=== PATIENT | female | born 1960 ===

== ENCOUNTER 2019-04-23 06:52 | Inpatient (IN) ==
--- NOTE | 2019-04-22 17:06 | Discharge Summary ---
Date of Encounter: 04/24/19 Time of Encounter: 08:45 - Discharge Diagnosis (1) Status post total replacement of left shoulder Priority: Primary Status: Acute (2) Rotator cuff tear arthropathy Priority: Primary Status: Chronic Qualifiers: Laterality: left Qualified Code(s): M75.102 - Unspecified rotator cuff tear or rupture of left shoulder, not specified as traumatic; M12.812 - Other specific arthropathies, not elsewhere classified, left shoulder (3) Arthritis of left shoulder region Priority: Primary Status: Chronic (4) History of pulmonary embolism Priority: Secondary Status: Chronic (5) USP current use of anticoagulant Priority: Secondary Status: Chronic (6) HTN (hypertension) Priority: Secondary Status: Chronic Qualifiers: Hypertension type: unspecified Qualified Code(s): I10 - Essential (primary) hypertension (7) HLD (hyperlipidemia) Priority: Secondary Status: Chronic Qualifiers: Hyperlipidemia type: unspecified Qualified Code(s): E78.5 - Hyperlipidemia, unspecified (8) COPD (chronic obstructive pulmonary disease) Priority: Secondary Status: Chronic Qualifiers: COPD type: unspecified COPD Qualified Code(s): J44.9 - Chronic obstructive pulmonary disease, unspecified (9) GERD (gastroesophageal reflux disease) Priority: Secondary Status: Chronic Qualifiers: Esophagitis presence: esophagitis presence not specified Qualified Code(s): K21.9 - Gastro-esophageal reflux disease without esophagitis (10) Tobacco dependence Priority: Secondary Status: Chronic - Hospital Course Hospital course: Ms. Paniagua is a 58 year old female POD#1 s/p Total Shoulder Replacement Reverse, left [Left shoulder cuff tear arthropathy] 04/23/19 Patient seen at bedside. Spouse at bedside. A&Ox3 Dressing and incision c/d/i No calf tenderness, erythema, or warmth. Neurovascularly intact b/l LE. Labwork, vitals, and medications reviewed. Pain control: Adequate Participating in therapy. All questions and concerns addressed. Educated on use of incentive spirometer, ambulation, and hydration. Patient educated on post-operative restrictions and care. Addressed: see above. Patient course and disposition discussed with Dr. Flores D/C plan: Home with Home health today. Outpatient follow up arranged - Time Spent with Patient Total time spent providing and/or coordinating discharge services: - Discharge Medications Prescriptions: New Docusate Sodium [Colace] 100 mg PO BID 5 Days #10 capsule OxyCODONE Immed Rel [Roxicodone 5 MG] 5 mg PO Q6HR PRN 5 Days #20 tablet PRN Reason: Severe Pain Continued Apixaban [Eliquis] 5 mg PO BID Atorvastatin Calcium [Lipitor] 20 mg PO HS Diltiazem CD (24hr) [Cardizem CD] 240 mg PO DAILY Ferrous Sulfate [Iron] 325 mg PO DAILY Gabapentin [Neurontin] 100 mg PO TID hydrOXYzine pamoate [HydrOXYzine Pamoate] 50 mg PO TID PRN PRN Reason: Anxiety Lisinopril [Zestril] 10 mg PO DAILY Omeprazole [PriLOSEC] 40 mg PO DAILY Quetiapine Fumarate [Seroquel] 50 mg PO BID risperiDONE [Risperidone] 1 mg PO HS Topiramate 50 mg PO DAILY Venlafaxine HCl [Venlafaxine HCl ER] 75 mg PO TID Home Medications: Docusate Sodium [Colace] 100 mg PO BID 5 Days #10 capsule 04/22/19 [Rx] OxyCODONE Immed Rel [Roxicodone 5 MG] 5 mg PO Q6HR PRN 5 Days #20 tablet 04/22/19 [Rx] Apixaban [Eliquis] 5 mg PO BID 04/23/19 [History] Atorvastatin Calcium [Lipitor] 20 mg PO HS 04/23/19 [History] Diltiazem CD (24hr) [Cardizem CD] 240 mg PO DAILY 04/23/19 [History] Ferrous Sulfate [Iron] 325 mg PO DAILY 04/23/19 [History] Gabapentin [Neurontin] 100 mg PO TID 04/23/19 [History] Lisinopril [Zestril] 10 mg PO DAILY 04/23/19 [History] Omeprazole [PriLOSEC] 40 mg PO DAILY 04/23/19 [History] Quetiapine Fumarate [Seroquel] 50 mg PO BID 04/23/19 [History] Topiramate 50 mg PO DAILY 04/23/19 [History] Venlafaxine HCl [Venlafaxine HCl ER] 75 mg PO TID 04/23/19 [History] hydrOXYzine pamoate [HydrOXYzine Pamoate] 50 mg PO TID PRN 04/23/19 [History] risperiDONE [Risperidone] 1 mg PO HS 04/23/19 [History] Allergies/Adverse Reactions: Allergy/AdvReac Type Severity Reaction Status Date / Time No Known Allergies Allergy Verified 05/17/16 22:39 Date of admission: 04/23/19 Primary care physician: Rony Gupta CNP Discharging clinician: Pramod Flores Anticipated date of discharge: 04/24/19 - VTE Documentation of Mechanical Device: Venous foot pump, device - Patient Status Disposition: Home Health Service Condition: Good Functional capacity at discharge: uses cane/walker Overall status at discharge: patient is progressing back to baseline - Discharge Instructions Follow Up With: Rony Gupta CNP [Primary Care Provider] - - Diet and Activity Activity: as per physical therapy Diet: advance to your usual diet
[2019-04-23] MEDS ORDERED: CeFAZolin Syr 2,000MG/20 ML 2,000 MG/20 ML SYRINGE IVPB ONE (07:39)
[2019-04-23] MEDS ORDERED: Albuterol 2.5 MG/3 ML NEBULIZER IH ONE (07:39)
[2019-04-23] MEDS ORDERED: Ringers Solution, Lactated 1,000 ML IVC SCH (07:45)
[2019-04-23] MEDS ORDERED: Albuterol 2.5 MG/3 ML NEBULIZER ONE (07:45)
--- NOTE | 2019-04-23 07:50 | History & Physical Report ---
Date of Encounter: 04/23/19 Time of Encounter: 07:49 24 Hour HP Update - Instructions Instructions: If the History and Physical is less than 30 days old and was completed prior to A.M. admission and or procedure and has NOT been updated on calendar day of procedure please complete this update prior to performing procedure. - Update Patient reports changes in Medical Condition: No Changes in examination, assessment, or condition: No Changes in Medication: No Preop tests/diagnostics Reviewed: Yes Surgery Remains Indicated: Yes Consent for Planned Operative Procedure(s) Verified: Yes - Pre-Operative Checklist Preoperative Checklist Indicated: No Prophylactic Antibiotic Ordered: Yes Is VTE Prophylaxis Indicated?: Yes
[2019-04-23] MEDS ORDERED: Lidocaine -MPF 4% 5 ML AMPUL ONE (07:54)
[2019-04-23] MEDS ORDERED: *HR* Succinylcholine 200 MG/10 ML VIAL IVP ONE (07:54)
[2019-04-23] MEDS ORDERED: Lidocaine -MPF 2% 2 ML VIAL ONE (07:54)
[2019-04-23] MEDS ORDERED: *HR* Propofol 200 MG/20 ML VIAL IVP ONE (07:54)
[2019-04-23] MEDS ORDERED: *HR* Midazolam HCl 2 MG/2 ML VIAL ONE (07:54)
[2019-04-23] MEDS ORDERED: *HR* FentaNYL (PF) 100 MCG/2 ML VIAL ONE ×2 (07:54→10:06)
--- NOTE | 2019-04-23 07:55 | Anesthesia Evaluation PreOp ---
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 Other Medical History: GERD Anesthesia History: No Prior Anesthetic Complications, Past Anesthesia Alcohol Use: none Drug use: none Medications and Allergies Ondansetron ODT [Zofran ODT] 4 mg PO Q6HR PRN #7 tab 05/18/16 [Rx] Docusate Sodium [Colace] 100 mg PO BID 5 Days #10 capsule 04/22/19 [Rx] OxyCODONE Immed Rel [Roxicodone 5 MG] 5 mg PO Q6HR PRN 5 Days #20 tablet 04/22 [Rx] Allergy/AdvReac Type Severity Reaction Status Date / Time No Known Allergies Allergy Verified 05/17/16 22:39 - Meds/Allergy Pre-op Review Medications Reviewed: Yes Allergies Reviewed: Yes Beta Blockers on Current Med List: No Anesthesia Results - Labs Laboratory Tests 04/16/19 04/16/19 04/16/19 15:05 15:05 15:05 WBC 5.8 Hgb 12.2 Hct 38.7 Plt Count 324 PT 13.0 H INR 1.1 APTT 39.9 H Sodium 137 Potassium 3.7 BUN 16 Creatinine 0.97 - Imaging EKG: report reviewed (04/16/2019 SINUS RHYTHM POSSIBLE LEFT ATRIAL ENLARGEMENT SEPTAL MYOCARDIAL INFARCTION, PROBABLY OLD) Anesthesia Exam O2 Sat Height 1.57 m Weight 78.925 kg O2 Sat by Pulse Oximetry 95 Vital Signs Temp Pulse Resp BP Pulse Ox 98.2 F 91 18 105/70 95 04/23/19 07:33 04/23/19 07:33 04/23/19 07:33 04/23/19 07:33 04/23/19 07:33 Height: 5'2'' Weight: 174 lbs NPO (# of Hours): 8 Pain Scale: 6 (left shoulder) Pain Scale Used: Numeric (1 - 10) - HEENT Pupil (Motor): EOMI Mallampati: II Teeth: Normal, Missing Denture Type: Upper: Complete Oral Opening: Greater than 3 - OIL WELL ENGINEER LOC: Oriented OIL WELL ENGINEER Motor: Normal RUE, Normal LUE, Normal RLE, Normal LLE, Normal Face OIL WELL ENGINEER Sensory: Normal: RUE, LUE, RLE, LLE, Face - Cardiac Rhythm: Regular Murmur: None - Pulmonary Breath Sounds: bilateral Clear (wheezes) Respiratory Effort: Symmetrical Anesthesia Assess/Plan ASA Score: 3 Level of consciousness: Cooperative, Oriented, Tranquil Anesthetic Plan: General, Regional Nerve Block Regional Nerve Block Plan: Supraclavicular Monitoring Plan: Standard Monitors Recovery Plan: PACU
[2019-04-23] MEDS ORDERED: Ondansetron 4 MG/2 ML VIAL IVP ONE (08:19)
[2019-04-23] MEDS ORDERED: *HR* Promethazine 25 MG/ML VIAL IVP PRN (08:19)
[2019-04-23] MEDS ORDERED: *HR* HYDROmorphone (PF) 1 MG/ML SYRINGE IVP PRN (08:19)
[2019-04-23] MEDS ORDERED: *HR* OxyCODONE Immed Rel 5 MG TABLET PO PRN ×2 (08:19→11:17)
[2019-04-23] MEDS ORDERED: Ethanol\\Acetic Acid\\Na Ace\\Ben 1,000 ML IRRIG.SOLN IR ONE (08:34)
[2019-04-23] MEDS ORDERED: Ropivacaine/PF 0.5% 30 ML VIAL ONE (08:35)
[2019-04-23] MEDS ORDERED: ROPIVACAINE/PF/NS 0.25% 1 EACH SYRINGE INTRAART ONE (08:35)
--- NOTE | 2019-04-23 08:51 | Anesthesia Procedures ---
Date of Encounter: 04/23/19 Time of Encounter: 08:41 Procedures: Anesthesia - Nerve Block Procedure Date: 04/23/19 Time: 08:41 Allergies/Adv Reactions: NKDA Surgical Procedure: L Total Shoulder Arthroplasty, Reverse Checklist: Correct Patient Identifier, Correct procedure, History checked Correct side: Left Blood Thinner: No Monitor Applied: EKG, BP, Pulse Oximetry Supplemental Oxygen via Nasal Cannula (L/min): 2 Sedation: Versed (mg): 2 Sedation: Fentanyl (mcg): 100 Indication: Post Op Analgesia Pre-op Neuro Deficits: No Block Type: Supraclavicular, Other (Intercostobracheal, Superficial Cervical) Catheter placed: No Sterile Technique: Yes Ultrasound used: Yes Anatomy identified: Yes Visual spread of Local: Yes Neuro Stimulation: No Blood on Needle Aspiration: No Smooth Injection of Local: Yes Pain with Injection of Local: No Prep: Chlorhexadine Needle: 22 x 50 mm Stimuplex Local: Ropivacaine (30mL 0.5% Ropivacaine with 8mg Decadron (Supraclavicular), 0.25% Ropivacaine (7mL Superficial Cervical), (13mL Intercostobracheal). ) Number of Attempts: 1 Complications: None/effective block Vitals: Vital Signs/O2 Sat/Glucose, Most Recent Temp Pulse Resp BP Pulse Ox 98.2 F 79 16 99/72 93 04/23/19 07:33 04/23/19 08:45 04/23/19 08:45 04/23/19 08:45 04/23/19 08:45
[2019-04-23] MEDS ORDERED: EPHEDrine 50 MG/ML VIAL ONE (09:22)
[2019-04-23] MEDS ORDERED: Ondansetron 4 MG/2 ML VIAL ONE (09:23)
[2019-04-23] MEDS ORDERED: Dexamethasone 4 MG/ML VIAL ONE (09:23)
--- NOTE | 2019-04-23 09:54 | Orthopedic Operative Note ---
Date of procedure: 04/23/19 Pre-op diagnosis: Left shoulder cuff tear arthropathy Post-op diagnosis: same Procedure: Procedure: Total Shoulder Replacment Reverse, left Estimated blood loss: 50 cc Hardware: Metal and polyethylene replacement: Arthrex 24, +2 , 25 mm screw glenoid baseplate, 4 locking 5.5 screw, 36+4 glenosphere, 7 [place] humeral stem, poly insert 3 Exam Under anesthesia: Full motion no instability Procedural Notes: Rotator cuff tear grade 4 arthritic changes humeral head and glenoid socket. Operative procedure: The patient was brought to the operating room and placed on the operating room table. After general anesthesia was administered the operative shoulder was examined. Findings were noted. The patient was placed in the modified beachchair position. All pressure points were padded appropriately. And the head was stabilized in the neutral position. The operative extremity was prepped and draped in the sterile surgical fashion. The patient received IV antibiotics prior to skin incision. A standard deltopectoral approach was made to the operative shoulder. Incision was made to the skin and subcutaneous tissue,hemo stasis was obtained with Bovie cautery. Using careful blunt dissection the cephalic vein was identified and mobilized medially. The deltopectoral interval was developed and the clavipectoral fascia was incised. The subscap was released off the lesser tuberosity and tagged with #2 FiberWire suture subscap was irreparable. The humerus was dislocated patient noted to have tear supraspinatus tendon, and the humeral cut was made along the anatomic neck. Patient noted to have grade 4 arthritic changes humeral head and glenoid socket. Anterior and posterior Bankart retractors were placed to expose the glenoid. The glenoid guide was seated and the centering hole was made. It was reamed with the appropriate jack vi. The 24, +2, 25 mm screw, baseplate was seated and secured with 4 locking 5.5 screw. The baseplate was irrigated and dried and the 36+4 Glenosphere was seated and secured with the Wilson taper. The Wilson taper was tested and found to be secure, glenosphere fixation was secondarily secured with the central screw. The humerus was redislocated and prepared with the diaphyseal reamers, followed by a broaching process up to the appropriate size 7 [place] in the patient's anatomic version. The metaphyseal reamer was then utilized. Trial reduction found the shoulder to be relocatable. Trial components were removed and 7 [place] stem was impacted in place in the patient's anatomic version. Trial reduction found the shoulder to be relocatable and stable with the appropriate 3 Trial component was removed and the real implant was seated and secured the shoulder was reduced. The shoulder had excellent motion and excellent stability and no evidence of dislocation. The deep tissue was irrigated with pulse irrigation. The PA close the shoulder. The deltopectoral interval was closed with a running #1 PDS suture, subcutaneous tissue was irrigated and closed with 0 PDS suture, the skin was closed with Dermabond. The patient was placed in a sterile dressing, abduction brace and extubated. The patient was then transferred to the recovery room in stable condition. Anesthesia: GETA Surgeon: Pramod Flores Was there an library serials assistant present: No Estimated blood loss (cc): 50 Condition: stable Disposition: PACU
[2019-04-23] MEDS ORDERED: hydrOXYzine pamoate 25 MG CAPSULE PO PRN (11:17)
[2019-04-23] MEDS ORDERED: Temazepam 15 MG CAPSULE PO PRN (11:17)
[2019-04-23] MEDS ORDERED: Ondansetron 4 MG/2 ML VIAL IVP PRN (11:17)
[2019-04-23] MEDS ORDERED: MOM Conc 10 ML UD.LIQ PO PRN (11:17)
[2019-04-23] MEDS ORDERED: traMADol 50 MG TABLET PO PRN (11:17)
[2019-04-23] MEDS ORDERED: Sennosides 8.6 MG TABLET PO PRN (11:17)
--- NOTE | 2019-04-23 11:21 | Anesthesia Evaluation Post Op ---
Date of Encounter: 04/23/19 Time of Encounter: 11:00 - Vital Signs Vital Signs: Selected Entries 04/23/19 10:41 Temperature 97.1 F L Pulse Rate 100 Respiratory Rate 20 Blood Pressure 135/81 O2 Sat by Pulse Oximetry 95 - Lungs Lungs: Wheezes (received breathing treatment in PACU. Patient feels she is at her baseline.) - Airway Airway: Non-obstructed - Cardiovascular Regular Rate - Mental Status Mental Status: Alert & Oriented, Answers Appropriately - Nausea Vomiting Nausea Vomiting: Not Present - Hydration Hydration: Tolerates oral liquids - Discharge PostOp Status: Transfer Patient to floor
--- NOTE | 2019-04-23 11:44 | Physician Discharge Referral ---
Home Health/Hosp Referral Info Transfer to: Home Health Attending Provider: Dr. 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 For more information, call the [place] Tobacco Quit Line at 1-022-BYVI-NOW. - Dressing/Wound Care Site: left shoulder Type of Dressing/Treatments w/Frequency: Opsite placed. Keep dressing intact until first follow up appointment. If greater than 50% saturated, notify office, remove dressing and place appropriate dressing back in place. Leave Zipline intact. Opsite dressing is water resistant, not water-proof. OK to shower, but do not get dressing wet. - Diet/Nutrition Diet/Nutrition Orders: Regular - Activity Activity Orders: Up ad juan, Ambulate, Chair Activity: List: PT/OT. NWB to affected upper extremity. Follow Shoulder Precautions x 6 weeks. Stay in brace during activity and at night. Remove brace during exercises. ICE and elevate extremity frequently throughout the day. - Services Needed Following services are medically necessary services: Nursing, Home Health Aide, Physical Therapy, Occupational Therapy, Med Social Work - Transfer Medications Prescriptions: Docusate Sodium [Colace] 100 mg PO BID 5 Days #10 capsule OxyCODONE Immed Rel [Roxicodone 5 MG] 5 mg PO Q6HR PRN 5 Days #20 tablet PRN Reason: Severe Pain Home Medications: Docusate Sodium [Colace] 100 mg PO BID 5 Days #10 capsule 04/22/19 [Rx] OxyCODONE Immed Rel [Roxicodone 5 MG] 5 mg PO Q6HR PRN 5 Days #20 tablet 04/22/19 [Rx] Apixaban [Eliquis] 5 mg PO BID 04/23/19 [History] Atorvastatin Calcium [Lipitor] 20 mg PO HS 04/23/19 [History] Diltiazem CD (24hr) [Cardizem CD] 240 mg PO DAILY 04/23/19 [History] Ferrous Sulfate [Iron] 325 mg PO DAILY 04/23/19 [History] Gabapentin [Neurontin] 100 mg PO TID 04/23/19 [History] Lisinopril [Zestril] 10 mg PO DAILY 04/23/19 [History] Omeprazole [PriLOSEC] 40 mg PO DAILY 04/23/19 [History] Quetiapine Fumarate [Seroquel] 50 mg PO BID 04/23/19 [History] Topiramate 50 mg PO DAILY 04/23/19 [History] Venlafaxine HCl [Venlafaxine HCl ER] 75 mg PO TID 04/23/19 [History] hydrOXYzine pamoate [HydrOXYzine Pamoate] 50 mg PO TID PRN 04/23/19 [History] risperiDONE [Risperidone] 1 mg PO HS 04/23/19 [History] Allergies/Adverse Reactions: Allergy/AdvReac Type Severity Reaction Status Date / Time No Known Allergies Allergy Verified 05/17/16 22:39 Certification: Further, I certify that my clinical findings support that this patient is homebound (i.e. absences from home require considerable and taxing effort and are for medical reasons or restoration services or infrequently or short duration when for other reasons) because: Homebound Reason: Post-surgery restriction and or conditions limit ability to leave home Attestation: My signature below is to certify that this patient is under my care and that I, or nurse practitioner, or a physician assistant softball coach working with me, has a [id number] encounter with this patient.
[2019-04-23] MEDS: Gabapentin 100 MG CAPSULE PO SCH ×2 (14:33→19:50)
[2019-04-23] MEDS: *HR* OxyCODONE/APAP 5/325 TABLET PO PRN (14:33)
[2019-04-23] MEDS: Ipratropium/Albuterol Neb 3 ML IH PRN (15:15)
[2019-04-23] MEDS ORDERED: *HR* Enoxaparin 30 MG/0.3 ML SYRINGE SQ ONE (15:30)
[2019-04-23] MEDS ORDERED: *HR* Enoxaparin 30 MG/0.3 ML SYRINGE SQ SCH ×2 (18:00)
[2019-04-23] MEDS: Ringers Solution, Lactated 1,000 ML IVC SCH (19:17)
[2019-04-23] MEDS: Apixaban 5 MG TABLET PO SCH (19:50)
[2019-04-23] MEDS: Venlafaxine XR (24 HR) 75 MG CAP.ER.24H PO SCH (19:51)
[2019-04-23] MEDS ORDERED: risperiDONE 1 MG TABLET PO SCH (21:00)
[2019-04-24] MEDS: *HR* OxyCODONE/APAP 5/325 TABLET PO PRN ×2 (01:46→08:17)
[2019-04-24] MEDS: Ringers Solution, Lactated 1,000 ML IVC SCH (01:49)
[2019-04-24] MEDS: Ipratropium/Albuterol Neb 3 ML IH PRN (02:20)
--- NOTE | 2019-04-24 06:23 | Orthopedics Progress Note ---
Date of Encounter: 04/24/19 Time of Encounter: 06:22 Subjective Interval history: Patient was seen this morning doing well without complaints. Afebrile vital signs stable. Operative extremity: Neurovascularly intact Dressing clean dry and intact Calves nontender Assessment and plan: Continue with postoperative care plan for discharge Objective Vital signs: Vital Signs Temp Pulse Resp BP Pulse Ox 04/24/19 04:11 97.9 F 100 20 118/74 94 04/24/19 02:20 22 93 04/23/19 23:44 98.1 F 107 16 115/87 94 04/23/19 19:57 93 04/23/19 19:15 97.9 F 108 17 140/84 93 04/23/19 15:15 18 94 04/23/19 13:50 108 16 122/83 90 04/23/19 12:50 100 18 121/84 92 04/23/19 12:20 96 18 118/83 91 04/23/19 11:50 92 18 122/82 93 04/23/19 11:20 97.6 F 102 16 121/79 91 04/23/19 10:51 105 20 119/86 95 04/23/19 10:41 97.1 F L 100 20 135/81 95 04/23/19 10:31 99 20 121/82 94 04/23/19 10:21 100 18 126/77 90 04/23/19 10:11 97.2 F L 97 16 124/80 99 04/23/19 08:55 85 15 95/78 93 04/23/19 08:45 79 16 99/72 93 04/23/19 08:39 75 16 99/66 92 04/23/19 08:32 79 16 116/81 94 04/23/19 07:59 18 95 04/23/19 07:33 98.2 F 91 18 105/70 95 Intake and Output 04/23/19 04/23/19 04/24/19 15:59 23:59 07:59 Intake Total 100 / 100 200 / 200 Output Total 50 / 50 Balance 50 / 50 200 / 200 Intake: IV Fluids 100 / 100 Ancef 2,000 MG In 0.9 % Sodium 100 / 100 Chloride 100 ML @ 200 mls/hr IVPB Q8H [facility] Rx#:[id number] Oral 200 / 200 Output: Urine 0 / 0 Estimated Blood Loss 50 / 50 Other: # Voids 1 1 Weight 78.7 kg Patient Weight 04/24/19 23:59 Weight 78.7 kg - VTE Documentation of Mechanical Device: Venous foot pump, device Consult Discharge Plan - Plan Referrals: Rony Gupta, COMPUTER GRAPHIC ARTIST [Primary Care Provider] -
[2019-04-24 06:28] VITALS: BP 142/91
[2019-04-24] MEDS: Venlafaxine XR (24 HR) 75 MG CAP.ER.24H PO SCH (08:18)
[2019-04-24] MEDS: Apixaban 5 MG TABLET PO SCH (08:18)
[2019-04-24] MEDS: Gabapentin 100 MG CAPSULE PO SCH (08:18)
[2019-04-24] MEDS ORDERED: Topiramate 25 MG TABLET PO SCH (09:00)
[2019-04-24] MEDS ORDERED: Diltiazem CD (24hr) 240 MG CAPSULE PO SCH (09:00)
[2019-04-24 10:10] LABS: Hematocrit 35.6 % (35.3-44.9); Hemoglobin 11.3 g/dL (11.5-15.4)
[2019-04-24 10:28] LABS: BUN/Creatinine Ratio 22 (6-26); Blood Urea Nitrogen 18 mg/dL (6-20); Calcium 8.9 mg/dL (8.6-10.3); Carbon Dioxide 24 mEq/L (23-29); Chloride 105 mEq/L (98-107); Glucose 144 mg/dL (70-105); Osmolality,Calculated 290 (280-300); Potassium 3.3 mEq/L (3.5-5.1); Sodium 138 mEq/L (136-145); eGFR For African Americans > 60 (> 60); eGFR For Non-African Americans > 60 (> 60)
== END 2019-04-24 10:40 | disposition home health service (06) | DRG 483 ==
LOC: SAMDAY 06:52 → 3NENU 12:12
PROVIDERS: ADMIT Orthopaedic Surgery; ATTEND Orthopaedic Surgery

== ENCOUNTER 2021-12-08 13:50 | Inpatient (IN) ==
[2021-12-08] MEDS ORDERED: Naloxone 0.4 MG/ML INJ IVP PRN (18:37)
[2021-12-08] MEDS ORDERED: Vancomycin (wt based) 1,000 MG VIAL IVPB SCH (19:00)
[2021-12-08] MEDS ORDERED: Vancomycin 1,750 MG/517.5 ML IV.SOLN IVPB ONE (20:00)
[2021-12-08 20:27] LABS: Basophils % 0.1 %; Hematocrit 24.8 % (35.3-44.9); Hemoglobin 7.6 g/dL (11.5-15.4); Immature Granulocytes % 1.4 % (0-4); Lymphocytes % 6.1 %; Mean Corpuscular HGB Conc 30.6 g/dL (31.6-35.5); Mean Corpuscular Hemoglobin 28.1 pg (28.0-33.3); Mean Corpuscular Volume 91.9 fL (83.0-100.0); Mean Platelet Volume 8.8 fL (9.4-12.4); Monocytes # 0.8 K/mcL (0.0-1.3); Monocytes % 5.4 %; Neutrophils # 13.5 K/mcL (1.6-8.9); Nucleated Red Blood Cells 0.1 /100 WBC (0); Platelet Count 532 K/mcL (140-400); Red Cell Distribution Width 16.2 % (11.5-14.5); White Blood Count 15.5 K/mcL (4.3-11.1)
[2021-12-08 20:36] LABS: Heparin anti-factor XA UFH 0.78 IU/mL (0.30-0.70)
[2021-12-08 20:37] LABS: INR 1.3; Prothrombin Time 14.9 Seconds (9.4-12.1)
[2021-12-08 20:48] LABS: Alanine Aminotransferase 16 Units/L (7-52); Alkaline Phosphatase 89 Units/L (34-104); Aspartate Amino Transferase 12 Units/L (13-39); BUN/Creatinine Ratio 39 (6-26); Bilirubin,Total 0.2 mg/dL (0.3-1.0); Blood Urea Nitrogen 26 mg/dL (8-23); C-Reactive Protein > 300 mg/L (Less than 10); Calcium 8.7 mg/dL (8.6-10.3); Carbon Dioxide 24 mEq/L (23-29); Chloride 106 mEq/L (98-107); Glucose 191 mg/dL (70-105); Osmolality,Calculated 298 (280-300); Potassium 3.8 mEq/L (3.5-5.1); Sodium 139 mEq/L (136-145); eGFR For African Americans > 60 (> 60); eGFR For Non-African Americans > 60 (> 60)
[2021-12-08] MEDS: 0.9 % Sodium Chloride 1,000 ML IVC SCH (21:08)
[2021-12-08] MEDS ORDERED: *HR* Heparin 5,000 UNIT/ML VIAL IVP ONE (22:00)
[2021-12-08] MEDS ORDERED: *HR* Heparin 5,000 UNIT/ML VIAL IVP PRN (22:00)
[2021-12-08] MEDS ORDERED: Heparin 25,000UNIT/250ML 1/2NS 25,000 UNIT/250 ML IV.SOLN IVC SCH (22:00)
[2021-12-08] MEDS: Vancomycin 1,250 MG/262.5 ML IV.SOLN IVPB SCH (22:08)
[2021-12-09] MEDS: Ipratropium/Albuterol Neb 3 ML IH SCH ×5 (00:16→19:53)
[2021-12-09] MEDS: Budesonide/Formoterol 160/4.5 1 PUFF INH IH SCH ×3 (00:16→19:55)
[2021-12-09] MEDS: Cefepime HCl 2,000 MG in 0.9 % Sodium Chloride 10 ML IVP SCH ×4 (01:50→23:18)
[2021-12-09] MEDS: *HR* HYDROcodone/Acet 5/325 mg TABLET PO PRN ×3 (02:01→19:39)
[2021-12-09 05:11] LABS: Basophils % 0.2 %; Eosinophils # 0.1 K/mcL (0.0-0.6); Eosinophils % 0.9 %; Hematocrit 25.3 % (35.3-44.9); Hemoglobin 7.8 g/dL (11.5-15.4); Immature Granulocytes % 2.2 % (0-4); Lymphocytes # 1.7 K/mcL (0.6-4.6); Lymphocytes % 13.1 %; Mean Corpuscular HGB Conc 30.8 g/dL (31.6-35.5); Mean Corpuscular Hemoglobin 28.1 pg (28.0-33.3); Mean Platelet Volume 8.9 fL (9.4-12.4); Monocytes # 1.1 K/mcL (0.0-1.3); Monocytes % 8.8 %; Neutrophils # 9.6 K/mcL (1.6-8.9); Nucleated Red Blood Cells 0.2 /100 WBC (0); Platelet Count 554 K/mcL (140-400); Red Blood Count 2.78 M/mcL (3.82-4.97); Red Cell Distribution Width 16.2 % (11.5-14.5); Segmented Neutrophils % 74.8 %; White Blood Count 12.8 K/mcL (4.3-11.1)
[2021-12-09 05:21] LABS: INR 1.2
[2021-12-09 05:24] LABS: Activated Partial Thrombo Time 44.2 Seconds (26.0-36.0)
[2021-12-09 05:30] LABS: BUN/Creatinine Ratio 43 (6-26); Blood Urea Nitrogen 23 mg/dL (8-23); Calcium 8.2 mg/dL (8.6-10.3); Carbon Dioxide 24 mEq/L (23-29); Chloride 106 mEq/L (98-107); Glucose 87 mg/dL (70-105); Osmolality,Calculated 289 (280-300); Sodium 138 mEq/L (136-145); eGFR For African Americans > 60 (> 60); eGFR For Non-African Americans > 60 (> 60)
[2021-12-09 05:35] LABS: Heparin anti-factor XA UFH 0.64 IU/mL (0.30-0.70)
[2021-12-09] MEDS: *HR* Heparin 5,000 UNIT/ML VIAL IVP PRN ×2 (06:03→13:42)
[2021-12-09] MEDS: Heparin 25,000UNIT/250ML 1/2NS 25,000 UNIT/250 ML IV.SOLN IVC SCH ×2 (06:04→13:42)
[2021-12-09] MEDS: MetroNIDAZOLE 500 MG/100 ML 500 MG/100 ML BAG IVPB SCH ×3 (07:59→23:18)
[2021-12-09] MEDS: 0.9 % Sodium Chloride 1,000 ML IVC SCH (07:59)
[2021-12-09] MEDS: Vancomycin 1,250 MG/262.5 ML IV.SOLN IVPB SCH (10:57)
[2021-12-09] MEDS ORDERED: clonazePAM 0.5 MG TABLET PO ONE (11:15)
[2021-12-09] MEDS ORDERED: Isovue-370 500 ML BOTTLE IVP ONE (11:46)
[2021-12-09] MEDS ORDERED: *HR* LORazepam 2 MG/ML VIAL IVP ONE (14:34)
[2021-12-09] MEDS ORDERED: MethylPREDNISolone 40 MG/ML VIAL IVP ONE (14:38)
[2021-12-09] MEDS: Venlafaxine XR (24 HR) 75 MG CAP.ER.24H PO SCH ×2 (15:14→19:40)
[2021-12-09] MEDS: Gabapentin 300 MG CAPSULE PO SCH ×2 (15:14→19:40)
[2021-12-09] MEDS: DilTIAZem CD (24hr) 240 MG CAP.ER.24H PO SCH (15:26)
[2021-12-09] MEDS: MethylPREDNISolone 40 MG/ML VIAL IVP SCH (19:41)
[2021-12-10] MEDS: Ipratropium/Albuterol Neb 3 ML IH SCH ×4 (03:45→19:36)
[2021-12-10] MEDS: MethylPREDNISolone 40 MG/ML VIAL IVP SCH ×3 (05:03→20:41)
[2021-12-10] MEDS: *HR* HYDROcodone/Acet 5/325 mg TABLET PO PRN ×3 (05:06→20:39)
[2021-12-10 05:20] LABS: Basophils % 0.2 %; Hematocrit 25.7 % (35.3-44.9); Hemoglobin 7.9 g/dL (11.5-15.4); Immature Granulocytes % 3.5 % (0-4); Lymphocytes # 0.8 K/mcL (0.6-4.6); Lymphocytes % 5.5 %; Mean Corpuscular HGB Conc 30.7 g/dL (31.6-35.5); Mean Corpuscular Hemoglobin 27.5 pg (28.0-33.3); Mean Corpuscular Volume 89.5 fL (83.0-100.0); Monocytes # 0.7 K/mcL (0.0-1.3); Monocytes % 4.5 %; Neutrophils # 12.5 K/mcL (1.6-8.9); Nucleated Red Blood Cells 0.3 /100 WBC (0); Platelet Count 559 K/mcL (140-400); Red Blood Count 2.87 M/mcL (3.82-4.97); Red Cell Distribution Width 16.1 % (11.5-14.5); Segmented Neutrophils % 86.3 %; White Blood Count 14.5 K/mcL (4.3-11.1)
[2021-12-10 05:26] LABS: BUN/Creatinine Ratio 41 (6-26); Blood Urea Nitrogen 20 mg/dL (8-23); Calcium 8.9 mg/dL (8.6-10.3); Carbon Dioxide 25 mEq/L (23-29); Chloride 102 mEq/L (98-107); Glucose 192 mg/dL (70-105); Osmolality,Calculated 292 (280-300); Potassium 4.3 mEq/L (3.5-5.1); Sodium 137 mEq/L (136-145); eGFR For African Americans > 60 (> 60); eGFR For Non-African Americans > 60 (> 60)
[2021-12-10] MEDS: Heparin 25,000UNIT/250ML 1/2NS 25,000 UNIT/250 ML IV.SOLN IVC SCH (07:22)
[2021-12-10] MEDS: Gabapentin 300 MG CAPSULE PO SCH ×3 (07:29→20:39)
[2021-12-10] MEDS: DilTIAZem CD (24hr) 240 MG CAP.ER.24H PO SCH (07:29)
[2021-12-10] MEDS: Venlafaxine XR (24 HR) 75 MG CAP.ER.24H PO SCH ×3 (07:29→20:39)
[2021-12-10] MEDS: Cefepime HCl 2,000 MG in 0.9 % Sodium Chloride 10 ML IVP SCH ×2 (07:30→15:53)
[2021-12-10] MEDS: MetroNIDAZOLE 500 MG/100 ML 500 MG/100 ML BAG IVPB SCH ×2 (07:30→15:53)
[2021-12-10] MEDS: Nicotine 14 MG PATCH.TD24 TD SCH (07:34)
[2021-12-10] MEDS: lamoTRIgine 100 MG TABLET PO SCH (07:34)
[2021-12-10] MEDS: clonazePAM 0.5 MG TABLET PO SCH (07:34)
[2021-12-10] MEDS: (Cariprazine Hcl [Vraylar] 1.5 MG Capsule) PO SCH (07:35)
[2021-12-10] MEDS: Budesonide/Formoterol 160/4.5 1 PUFF INH IH SCH ×2 (10:13→19:36)
[2021-12-10] MEDS: Pantoprazole 40 MG VIAL IVP SCH (18:03)
[2021-12-11] MEDS: Cefepime HCl 2,000 MG in 0.9 % Sodium Chloride 10 ML IVP SCH ×3 (00:01→17:08)
[2021-12-11] MEDS: MetroNIDAZOLE 500 MG/100 ML 500 MG/100 ML BAG IVPB SCH ×3 (00:08→17:08)
[2021-12-11] MEDS: Ipratropium/Albuterol Neb 3 ML IH SCH ×4 (03:58→15:52)
[2021-12-11] MEDS: *HR* HYDROcodone/Acet 5/325 mg TABLET PO PRN ×2 (04:47→20:36)
[2021-12-11 05:29] LABS: Basophils % 0.2 %; Hematocrit 25.2 % (35.3-44.9); Hemoglobin 7.7 g/dL (11.5-15.4); Immature Granulocytes % 3.5 % (0-4); Lymphocytes # 1.1 K/mcL (0.6-4.6); Lymphocytes % 5.1 %; Mean Corpuscular HGB Conc 30.6 g/dL (31.6-35.5); Mean Corpuscular Hemoglobin 27.5 pg (28.0-33.3); Mean Platelet Volume 8.9 fL (9.4-12.4); Monocytes # 1.3 K/mcL (0.0-1.3); Monocytes % 5.9 %; Neutrophils # 18.5 K/mcL (1.6-8.9); Nucleated Red Blood Cells 0.3 /100 WBC (0); Platelet Count 588 K/mcL (140-400); Red Cell Distribution Width 16.3 % (11.5-14.5); Segmented Neutrophils % 85.3 %; White Blood Count 21.7 K/mcL (4.3-11.1)
[2021-12-11 05:50] LABS: BUN/Creatinine Ratio 44 (6-26); Blood Urea Nitrogen 25 mg/dL (8-23); Carbon Dioxide 29 mEq/L (23-29); Chloride 104 mEq/L (98-107); Glucose 161 mg/dL (70-105); Magnesium 2.2 mg/dL (1.6-2.6); Osmolality,Calculated 298 (280-300); Potassium 4.1 mEq/L (3.5-5.1); Sodium 140 mEq/L (136-145); eGFR For African Americans > 60 (> 60); eGFR For Non-African Americans > 60 (> 60)
[2021-12-11] MEDS: Pantoprazole 40 MG VIAL IVP SCH ×2 (05:54→17:08)
[2021-12-11] MEDS: Budesonide/Formoterol 160/4.5 1 PUFF INH IH SCH ×2 (07:45→20:45)
[2021-12-11] MEDS: Venlafaxine XR (24 HR) 75 MG CAP.ER.24H PO SCH ×3 (09:33→20:37)
[2021-12-11] MEDS: DilTIAZem CD (24hr) 240 MG CAP.ER.24H PO SCH (09:34)
[2021-12-11] MEDS: clonazePAM 0.5 MG TABLET PO SCH (09:34)
[2021-12-11] MEDS: Nicotine 14 MG PATCH.TD24 TD SCH (09:34)
[2021-12-11] MEDS: lamoTRIgine 100 MG TABLET PO SCH (09:34)
[2021-12-11] MEDS: predniSONE 20 MG TABLET PO SCH (09:34)
[2021-12-11] MEDS: Gabapentin 300 MG CAPSULE PO SCH ×3 (09:34→20:37)
[2021-12-11] MEDS: (Cariprazine Hcl [Vraylar] 1.5 MG Capsule) PO SCH (09:35)
[2021-12-11] MEDS: Vancomycin 1,250 MG/262.5 ML IV.SOLN IVPB SCH ×2 (10:58→20:39)
[2021-12-11] MEDS ORDERED: Lidocaine HCL 4 ML Topical Solution (Laryng-O-Jet Kit Sterile Pak) TP ONE (13:14)
[2021-12-11] MEDS ORDERED: *HR* Succinylcholine 200 MG/10 ML VIAL IVP ONE (13:15)
[2021-12-11] MEDS ORDERED: *HR* Rocuronium Bromide 50 MG/5 ML VIAL ONE ×2 (13:15→13:58)
[2021-12-11] MEDS ORDERED: Ondansetron 4 MG/2 ML VIAL ONE (13:15)
[2021-12-11] MEDS ORDERED: Lidocaine -MPF 2% 5 ML VIAL ONE (13:15)
[2021-12-11] MEDS ORDERED: *HR* FentaNYL (PF) 100 MCG/2 ML VIAL ONE ×2 (13:16→14:26)
[2021-12-11] MEDS ORDERED: *HR* Midazolam HCl 2 MG/2 ML VIAL ONE (13:16)
[2021-12-11] MEDS ORDERED: *HR* Propofol 200 MG/20 ML VIAL IVP ONE ×3 (13:16→15:16)
[2021-12-11] MEDS ORDERED: Isovue-370 500 ML BOTTLE IVP ONE (15:17)
[2021-12-12] MEDS: MetroNIDAZOLE 500 MG/100 ML 500 MG/100 ML BAG IVPB SCH ×4 (00:16→23:44)
[2021-12-12] MEDS: Cefepime HCl 2,000 MG in 0.9 % Sodium Chloride 10 ML IVP SCH ×4 (00:20→23:43)
[2021-12-12] MEDS ORDERED: *HR* OxyCODONE Immed Rel 5 MG TABLET PO ONE (01:43)
[2021-12-12] MEDS: Ipratropium/Albuterol Neb 3 ML IH SCH ×4 (04:02→20:01)
[2021-12-12] MEDS: Pantoprazole 40 MG VIAL IVP SCH (04:58)
[2021-12-12 05:17] LABS: Basophils # 0.1 K/mcL (0.0-0.2); Basophils % 0.3 %; Hematocrit 24.6 % (35.3-44.9); Hemoglobin 7.5 g/dL (11.5-15.4); Immature Granulocytes % 4.8 % (0-4); Lymphocytes # 1.4 K/mcL (0.6-4.6); Lymphocytes % 6.2 %; Mean Corpuscular HGB Conc 30.5 g/dL (31.6-35.5); Mean Corpuscular Hemoglobin 28.3 pg (28.0-33.3); Mean Corpuscular Volume 92.8 fL (83.0-100.0); Mean Platelet Volume 8.7 fL (9.4-12.4); Monocytes # 1.6 K/mcL (0.0-1.3); Monocytes % 7.2 %; Neutrophils # 18.7 K/mcL (1.6-8.9); Nucleated Red Blood Cells 0.7 /100 WBC (0); Platelet Count 533 K/mcL (140-400); Red Blood Count 2.65 M/mcL (3.82-4.97); Red Cell Distribution Width 16.8 % (11.5-14.5); Segmented Neutrophils % 81.5 %; White Blood Count 22.9 K/mcL (4.3-11.1)
[2021-12-12 05:31] LABS: BUN/Creatinine Ratio 41 (6-26); Blood Urea Nitrogen 26 mg/dL (8-23); Calcium 9.1 mg/dL (8.6-10.3); Carbon Dioxide 25 mEq/L (23-29); Chloride 103 mEq/L (98-107); Glucose 131 mg/dL (70-105); Osmolality,Calculated 289 (280-300); Potassium 4.3 mEq/L (3.5-5.1); Sodium 136 mEq/L (136-145); eGFR For African Americans > 60 (> 60); eGFR For Non-African Americans > 60 (> 60)
[2021-12-12 05:33] LABS: % Iron Saturation 16 % (15-50); Iron 43 mcg/dL (50-170); Transferrin 196 mg/dL (203-362)
[2021-12-12 05:51] LABS: Ferritin 212 ng/mL (10-120)
[2021-12-12] MEDS: predniSONE 20 MG TABLET PO SCH (08:24)
[2021-12-12] MEDS: Gabapentin 300 MG CAPSULE PO SCH ×3 (08:24→21:09)
[2021-12-12] MEDS: DilTIAZem CD (24hr) 240 MG CAP.ER.24H PO SCH (08:24)
[2021-12-12] MEDS: Venlafaxine XR (24 HR) 75 MG CAP.ER.24H PO SCH ×3 (08:24→21:09)
[2021-12-12] MEDS: clonazePAM 0.5 MG TABLET PO SCH (08:24)
[2021-12-12] MEDS: lamoTRIgine 100 MG TABLET PO SCH (08:25)
[2021-12-12] MEDS: (Cariprazine Hcl [Vraylar] 1.5 MG Capsule) PO SCH (08:25)
[2021-12-12] MEDS: *HR* HYDROcodone/Acet 5/325 mg TABLET PO PRN (08:31)
[2021-12-12] MEDS: Nicotine 14 MG PATCH.TD24 TD SCH (08:31)
[2021-12-12] MEDS: Vancomycin 1,250 MG/262.5 ML IV.SOLN IVPB SCH ×2 (08:45→21:59)
[2021-12-12] MEDS ORDERED: Isovue-370 500 ML BOTTLE PO ONE (10:19)
[2021-12-12] MEDS: Budesonide/Formoterol 160/4.5 1 PUFF INH IH SCH ×2 (10:42→20:01)
[2021-12-12] MEDS: *HR* OxyCODONE/APAP 5/325 TABLET PO PRN ×2 (14:55→21:09)
[2021-12-12] MEDS: Lactobacillus 1 EACH CAP.SPRINK PO SCH (21:09)
[2021-12-12] MEDS: Vancomycin 1,500 MG/265 ML IV.SOLN IVPB SCH (22:04)
[2021-12-13] MEDS: Ipratropium/Albuterol Neb 3 ML IH SCH ×4 (04:26→22:43)
[2021-12-13] MEDS: *HR* OxyCODONE/APAP 5/325 TABLET PO PRN ×3 (05:13→18:20)
[2021-12-13 06:17] LABS: Hematocrit 25.3 % (35.3-44.9); Hemoglobin 7.7 g/dL (11.5-15.4); Mean Corpuscular HGB Conc 30.4 g/dL (31.6-35.5); Mean Corpuscular Hemoglobin 27.8 pg (28.0-33.3); Mean Corpuscular Volume 91.3 fL (83.0-100.0); Mean Platelet Volume 8.7 fL (9.4-12.4); Nucleated Red Blood Cells 1.5 /100 WBC (0); Platelet Count 539 K/mcL (140-400); Red Blood Count 2.77 M/mcL (3.82-4.97); Red Cell Distribution Width 16.8 % (11.5-14.5); White Blood Count 19.8 K/mcL (4.3-11.1)
[2021-12-13 06:36] LABS: Anisocytosis 1+ (Not Present); Lymphocytes # 4.4 K/mcL (0.6-4.6); Neutrophils # 15.4 K/mcL (1.6-8.9); Platelet Estimate Increased (Normal); Polychromasia 1+ (Not Present)
[2021-12-13 07:17] LABS: BUN/Creatinine Ratio 37 (6-26); Blood Urea Nitrogen 23 mg/dL (8-23); Calcium 8.6 mg/dL (8.6-10.3); Carbon Dioxide 26 mEq/L (23-29); Chloride 104 mEq/L (98-107); Glucose 132 mg/dL (70-105); Osmolality,Calculated 290 (280-300); Potassium 3.8 mEq/L (3.5-5.1); Sodium 137 mEq/L (136-145); eGFR For African Americans > 60 (> 60); eGFR For Non-African Americans > 60 (> 60)
[2021-12-13] MEDS: Budesonide/Formoterol 160/4.5 1 PUFF INH IH SCH ×2 (07:34→22:43)
[2021-12-13] MEDS: Lactobacillus 1 EACH CAP.SPRINK PO SCH ×2 (08:05→20:44)
[2021-12-13] MEDS: Venlafaxine XR (24 HR) 75 MG CAP.ER.24H PO SCH ×3 (08:05→20:45)
[2021-12-13] MEDS: lamoTRIgine 100 MG TABLET PO SCH (08:05)
[2021-12-13] MEDS: DilTIAZem CD (24hr) 240 MG CAP.ER.24H PO SCH (08:05)
[2021-12-13] MEDS: Gabapentin 300 MG CAPSULE PO SCH ×3 (08:05→20:45)
[2021-12-13] MEDS: clonazePAM 0.5 MG TABLET PO SCH (08:06)
[2021-12-13] MEDS: Nicotine 14 MG PATCH.TD24 TD SCH (08:07)
[2021-12-13] MEDS: (Cariprazine Hcl [Vraylar] 1.5 MG Capsule) PO SCH (08:07)
[2021-12-13] MEDS: Cefepime HCl 2,000 MG in 0.9 % Sodium Chloride 10 ML IVP SCH ×2 (08:08→15:42)
[2021-12-13] MEDS: MetroNIDAZOLE 500 MG/100 ML 500 MG/100 ML BAG IVPB SCH ×2 (08:11→15:43)
[2021-12-13] MEDS ORDERED: predniSONE 20 MG TABLET PO SCH (09:00)
[2021-12-13] MEDS: Apixaban 5 MG TABLET PO SCH ×2 (10:02→20:44)
[2021-12-13] MEDS: Vancomycin 1,500 MG/265 ML IV.SOLN IVPB SCH (10:02)
[2021-12-14] MEDS: Cefepime HCl 2,000 MG in 0.9 % Sodium Chloride 10 ML IVP SCH ×2 (00:29→09:34)
[2021-12-14] MEDS: *HR* OxyCODONE/APAP 5/325 TABLET PO PRN ×3 (00:30→14:51)
[2021-12-14] MEDS: MetroNIDAZOLE 500 MG/100 ML 500 MG/100 ML BAG IVPB SCH ×2 (00:30→09:34)
[2021-12-14 01:18] LABS: Hematocrit 26.6 % (35.3-44.9); Hemoglobin 8.3 g/dL (11.5-15.4); Mean Corpuscular HGB Conc 31.2 g/dL (31.6-35.5); Mean Corpuscular Hemoglobin 28.5 pg (28.0-33.3); Mean Corpuscular Volume 91.4 fL (83.0-100.0); Nucleated Red Blood Cells 1.7 /100 WBC (0); Platelet Count 556 K/mcL (140-400); Red Blood Count 2.91 M/mcL (3.82-4.97); Red Cell Distribution Width 17.2 % (11.5-14.5); White Blood Count 21.7 K/mcL (4.3-11.1)
[2021-12-14 01:23] LABS: BUN/Creatinine Ratio 33 (6-26); Blood Urea Nitrogen 23 mg/dL (8-23); Carbon Dioxide 25 mEq/L (23-29); Chloride 101 mEq/L (98-107); Glucose 143 mg/dL (70-105); Osmolality,Calculated 286 (280-300); Potassium 4.3 mEq/L (3.5-5.1); Sodium 135 mEq/L (136-145); eGFR For African Americans > 60 (> 60); eGFR For Non-African Americans > 60 (> 60)
[2021-12-14 02:29] LABS: Lymphocytes # 3.5 K/mcL (0.6-4.6); Monocytes # 0.9 K/mcL (0.0-1.3); Neutrophils # 17.4 K/mcL (1.6-8.9)
[2021-12-14 02:30] LABS: Platelet Estimate Increased (Normal)
[2021-12-14 02:31] LABS: Anisocytosis 1+ (Not Present); Polychromasia 1+ (Not Present)
[2021-12-14] MEDS: Ipratropium/Albuterol Neb 3 ML IH SCH ×2 (04:07→11:07)
[2021-12-14] MEDS ORDERED: Isovue-370 500 ML BOTTLE IVP ONE (07:25)
[2021-12-14 07:37] VITALS: BP 139/82; PULSE 87; TEMP 97.9
[2021-12-14] MEDS: clonazePAM 0.5 MG TABLET PO SCH (09:32)
[2021-12-14] MEDS: Venlafaxine XR (24 HR) 75 MG CAP.ER.24H PO SCH (09:32)
[2021-12-14] MEDS: Lactobacillus 1 EACH CAP.SPRINK PO SCH (09:32)
[2021-12-14] MEDS: Gabapentin 300 MG CAPSULE PO SCH (09:32)
[2021-12-14] MEDS: Apixaban 5 MG TABLET PO SCH (09:32)
[2021-12-14] MEDS: DilTIAZem CD (24hr) 240 MG CAP.ER.24H PO SCH (09:33)
[2021-12-14] MEDS: Nicotine 14 MG PATCH.TD24 TD SCH (09:33)
[2021-12-14] MEDS: lamoTRIgine 100 MG TABLET PO SCH (09:33)
[2021-12-14] MEDS: (Cariprazine Hcl [Vraylar] 1.5 MG Capsule) PO SCH (10:39)
[2021-12-14] MEDS: Budesonide/Formoterol 160/4.5 1 PUFF INH IH SCH (11:07)
[2021-12-14 12:08] VITALS: O2SAT 3
== END 2021-12-14 15:10 | disposition home health service (06) | DRG 853 ==
LOC: 2ANU → SUATTDRO 21:33
PROVIDERS: ADMIT Hospitalist; ATTEND Pharmacist